=== PATIENT | female | born 1990 | race Caucasian/White ===

== ENCOUNTER 2017-01-09 17:05 | Emergency (ER) | payer OTHER ==
--- NOTE | 2017-01-09 17:42 | DIAGNOSTIC IMAGING REPORT ---
PROCEDURE: XR WRIST MIN 3 VIEWS - RIGHT INDICATION: TRAUMA/INJURY TECHNIQUE: Five views of the right wrist. COMPARISON: None. FINDINGS: Normal mineralization. No fractures. Normal osseous alignment. No suspicious soft-tissue calcification or radiodense foreign bodies. IMPRESSION: 1. Intact right wrist.
--- NOTE | 2017-01-09 17:57 | ED CLINICAL REPORT ---
Clinical Report - Physicians/Mid Levels [facility] [address] [place] [address] 01/09/2017 17:12 Patient: ASHLEY ESPINOZA Time Seen: 17:20; initial patient contact, initial documentation, patient care assumed. Arrived- By private vehicle. Historian- patient. HISTORY OF PRESENT ILLNESS Chief Complaint: Injury to the right wrist. The injury happened about 3 - 4 days ago. Occurred at work. The patient sustained a moderate direct blow (struck by wrench, changing oil). Patient is experiencing moderate pain. Patient denies injury to the head or neck. No other injury. REVIEW OF SYSTEMS The patient has had swelling. No tingling, numbness, weakness, foreign body or skin laceration. and bruising. All systems otherwise negative, except as recorded above. PAST HISTORY See nurses notes. PROBLEMS: Substance Abuse. Cellulitis. Abscess. Immunizations. LNMP - Last Normal Menstrual Period. Degenerative disk disease. Anemia. Endometriosis. Scoliosis. Arthritis. Lupus. --17:19 Bruce Myrick R.N. ADDITIONAL SURGERIES: Appendectomy. Dilatation & Curettage. Laparoscopy. Tonsillectomy. --17:19 Bruce Myrick R.N. 17:21. The patient's dominant hand is the right. SOCIAL HISTORY Light tobacco smoker. No alcohol use. No recent travel. Is a local resident. FAMILY HISTORY No significant family medical history. ADDITIONAL NOTES The nursing notes have been reviewed with agreement regarding the chief complaint, HPI, ROS, PMH and patient medications and allergies. PHYSICAL EXAM Vital Signs: 01/09/2017 17:15 BP: 131/81. HR: 102. RR: 18. O2 saturation: 98%. Temp: 98.6 F. Pain level now: 9/10. Have been reviewed as normal and appear to be correct. Appearance: Alert. Oriented X3. No acute distress. Head: Head atraumatic. Eyes: Pupils equal, round and reactive to light. Eyes normal inspection. Respiratory: No respiratory distress. Skin: Skin warm and dry. Skin intact. Extremities: (tender on the radial side, no swelling, from, no contusion, no s/s of injury). No wrist injury. No hand injury. Hand and wrist exam otherwise negative. Extremities otherwise negative. Neuro, Vascular and Tendons: Vascular status intact. Sensation intact. Motor intact. Tendon function intact. Neuro: Oriented X 3. No motor deficit. No sensory deficit. Note: isolated injury to wrist. LABS, X-RAYS, AND EKG X-Rays: Right wrist negative. Rt Wrist X-ray: (IMPRESSION: 1. Intact right wrist. Electronically Final signed by:Amna Kelly MD 01/09/2017 5:37:57 PM). The X-rays were interpreted by the radiologist and contemporaneously by me. PROGRESS AND PROCEDURES Course of Care: 17:25 01/09/17. pt has susana recommending no narcs or controlled substances be given, limit ionizing radiation studies, frequent narc rx, and #10 er visits, see report for full details 17:59 01/09/17. L&I paperwork completed, pt asking for time off from work, wrist splint, and keeps talking about how painful it is and it is shooting pains into her fingers. Patient counseled in person regarding the patient's stable condition, test results and diagnosis. 1750. Differential Diagnosis: Other possible considerations: wrist fx, contusion, sprain. Above considerations are based on history, physical exam, reassessment and X-Ray data. Differential diagnosis was discussed with patient. Disposition: Discharged home in good and improved condition (17:57). Condition: good and stable. CLINICAL IMPRESSION Sprain of the right radiocarpal joint. INSTRUCTIONS Wear elastic wrap (Waldo wrap) as directed for one weeks. Do not work today, tomorrow. Warnings: GENERAL WARNINGS: Return or contact your physician immediately if your condition worsens or changes unexpectedly, if not improving as expected, or if other problems arise. Specifically return if problem worsens. Prescription Medications: Naproxen 500 mg tablets: take 1 orally every 12 hours as needed for pain. Dispense twenty (20). No refills. Follow-up: Follow up with your doctor in about one week as needed. Call for an appointment. Summary of care provided to patient. Understanding of the discharge instructions verbalized by patient. (Electronically signed by Beata Altamirano A.R.N.P. 01/09/2017 20:47)
--- NOTE | 2017-01-09 17:57 | ED NURSING NOTES ---
Clinical Report - Nurses [facility] [address] [place] [address] 01/09/2017 17:12 Patient: ASHLEY ESPINOZA TRIAGE Triage time 17:15. Acuity: LEVEL 4. Chief Complaint: INJURY TO RIGHT WRIST. 17:15 01/09/17. 17:15 01/09/17. Alert. No acute distress. 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 This pain is not any better.). SEPSIS SCREEN: Sepsis Screen. Negative (no infection suspected/documented). HARMONY COMA SCORE: Harmony Coma Scale: 15- eyes open spontaneously (4); best verbal response- oriented x 4 (5); best motor response- obeys commands (6). --17:21 Bruce Myrick R.N. 17:15 01/09/17. BP: 131/81. HR: 102. RR: 18. O2 saturation: 98% on room air. Temp: 98.6 F (oral). Pain level now: 05/07. --17:21 Bruce Myrick R.N. Weight: 74.8 kg stated. Height/Length: 64 inches Per Patient. BMI: 28.3. --17:17 Bruce Myrick R.N. Medications LamoTRIgine Oral. --17:18 Bruce Myrick R.N. Vistaril Oral. --17:18 Bruce Myrick R.N. Imitrex Oral. --17:18 Bruce Myrick R.N. Allergies Cipro. Sulfa Antibiotics. Tetracycline. Toradol. Ultram. --17:18 Bruce Myrick R.N. Azithromycin. --17:19 Bruce Myrick R.N. The following entry was struck by Bruce Myrick R.N., 17:19 (01/09/17) Reason - other. <<STRICKEN ENTRY-- Erythromycin. --17:18 Boardley, Bruce, R.N. --END STRIKE>>. History Arrived by private vehicle. Historian: patient. Accompanied by family. Primary physician (Miguel Angel Culver). 17:15 01/09/17. This occurred (Monday). Occurred at work. Mechanism of injury: a single blow (right wrist). She has had numbness of the right hand w/ tingling. 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 PAST MEDICAL HX: Tetanus status: up-to-date. Immunizations: up-to-date. The patient has had a hysterectomy. SOCIAL HX: Current every day light tobacco smoker (cigarette)- less than 1/2 a pack per day. No alcohol use or drug use. No infectious disease exposure. ABUSE ASSESSMENT: No report of abuse. FALL RISK ASSESSMENT: Fall risk assessment completed. No fall risk identified. NUTRITIONAL RISK ASSESSMENT: The nutritional risk assessment revealed no deficiencies. FUNCTIONAL ASSESSMENT: Functional assessment: no impairments noted. LEARNING NEEDS ASSESSMENT: The learning needs assessment revealed no barriers. SKIN INTEGRITY ASSESSMENT: Skin integrity risk assessment completed. No skin integrity risk identified. --17:21 Bruce Myrick R.N. PROBLEMS: Substance Abuse. Cellulitis. Abscess. Immunizations. LNMP - Last Normal Menstrual Period. Degenerative disk disease. Anemia. Endometriosis. Scoliosis. Arthritis. Lupus. --17:19 Bruce Myrick R.N. ADDITIONAL SURGERIES: Appendectomy. Dilatation & Curettage. Laparoscopy. Tonsillectomy. --17:19 Bruce Myrick R.N. Hysterectomy. --17:21 Bruce Myrick R.N. Assessment 17:15 01/09/17. --17:21 Bruce Myrick R.N. Interventions 17:15 01/09/17. 17:01/09/17. ID and allergy band on patient. To treatment room. --17:21 Bruce Myrick R.N. PHYSICAL ASSESSMENT 17:20 01/09/17. Ambulatory to room. GENERAL / NEURO / PSYCH: Oriented X 4. Alert. Appears in no acute distress. EXTREMITIES: Capillary refill is less than 2 seconds in the extremities. Neuro-vascular status intact to the extremity. Right wrist: tenderness. SKIN: Skin is warm and dry. --17:20 Bruce Myrick R.N. NURSING PROGRESS NOTES 17:20 01/09/17. The plan of care for this patient has been created. Cold pack applied. Extremity elevated. Neuro-vascular extremity check. Reassurance given. Two patient identifiers checked. Call light placed in reach. Side rails up x 2. Bed placed in lowest position. Brakes of bed on. --17:20 Bruce Myrick R.N. 17:20 01/09/17. Patient ready for evaluation- chart flagged and notification provided. --17:20 Bruce Myrick R.N. DISPOSITION / DISCHARGE 18:03 01/09/17. Condition at departure: improved. The goals identified in the patient's plan of care were met. No learning barriers present. Discharge instructions provided and reviewed with the patient. Reviewed warnings. Reviewed medication(s). Treatments reviewed. Patient verbalized understanding. Written instructions provided in Nepalese. The patient was discharged by the nurse practitioner. She was discharged home and accompanied by family. She left the Emergency Department ambulatory and via private vehicle. Family member driving. FALL RISK ASSESSMENT: Fall risk assessment completed. No fall risk identified. --18:03 Bruce Myrick R.N. 18:02 01/09/17. BP: 124/79. HR: 86. RR: 12. O2 saturation: 99% on room air. Temp: 98.2 F (oral). Pain level now: 09/06. --18:03 Bruce Myrick R.N. 18:03 01/09/17. Departure time: 18:03. --18:03 Bruce Myrick R.N. Locked/Released at 01/09/2017 19:21 by Bruce Myrick R.N.
--- NOTE | 2017-01-09 17:57 | ED ORDER SUMMARY ---
..... Patient: ASHLEY ESPINOZA OrderSheet [facility] VisitID: [id number] [address] [place] [address] 26y, F Registration Date/Time: 01/09/2017 ORDER SHEET Weight: 74.8 kg (stated) Allergies: Cipro, Sulfa Antibiotics, Tetracycline, Toradol, Ultram, Azithromycin GENERAL ORDERS: Wrist 3 or 4V Right Urgent (17:24 01/09/2017 HBivens A.R.N.P.) (Ack 17:33 KHoerner) (17:40 KHoerner) Waldo Wrap (17:59 01/09/2017 HBivens A.R.N.P.) (Cancelled: Patient [id number] Christine VelascoNPatricia) MEDICATION ORDERS: IV FLUIDS: ORDER SHEET NOTES: [Electronically signed by Bruce Myrick R.N. (19:21 01/09/2017)] [Electronically signed by Beata Altamirano.R.N.PPatricia (20:47 01/09/2017)] [Electronically locked/signed by Bruce Myrick R.N. (19:21 01/09/2017)]
--- NOTE | 2017-01-09 17:57 | ED ORDER SUMMARY ---
..... Patient: ASHLEY ESPINOZA OrderSheet [facility] VisitID: [id number] [address] [place] [address] 26y, F Registration Date/Time: 01/09/2017 ORDER SHEET Weight: 74.8 kg (stated) Allergies: Cipro, Sulfa Antibiotics, Tetracycline, Toradol, Ultram, Azithromycin GENERAL ORDERS: Wrist 3 or 4V Right Urgent (17:24 01/09/2017 HBivens A.R.N.P.) (Ack 17:33 KHoerner) (17:40 KHoerner) Waldo Wrap (17:59 01/09/2017 HBivens A.R.N.P.) (Cancelled: Patient [id number] Christine VelascoNPatricia) MEDICATION ORDERS: IV FLUIDS: ORDER SHEET NOTES: [Electronically signed by Bruce Myrick R.N. (19:21 01/09/2017)] [Electronically signed by Beata Altamirano.R.N.PPatricia (20:47 01/09/2017)] [Electronically locked/signed by Bruce Myrick R.N. (19:21 01/09/2017)]
--- NOTE | 2017-01-09 20:47 | ED MAR SUMMARY ---
..... Medication Administration Record [facility] [address] [place], [place] [id number] Patient: ASHLEY ESPINOZA Visit ID: [id number] 26y, F Weight: 74.8 kg Height/Length: 64 in BMI: 28.3 ALLERGIES: Cipro, Sulfa Antibiotics, Tetracycline, Toradol, Ultram, Azithromycin
--- NOTE | 2017-01-09 20:47 | ED MED RECONCILIATION SUMMARY ---
Patient: ASHLEY ESPINOZA Medication Reconciliation Report [facility] VisitID: [id number] [address] [place] [address] 26y, F Registration Date/Time: 01/09/2017 Weight: 74.8 kg Height/Length: 64 in. BMI: 28.3 ALLERGIES: Azithromycin, Cipro, Sulfa Antibiotics, Tetracycline, Toradol, Ultram The patient's Home Medications are listed below: THE FOLLOWING MEDICATIONS NEED TO BE RECONCILED: Imitrex Oral LamoTRIgine Oral Vistaril Oral The source(s) of the original Home Medication information: Not obtained. The following Medications were given to the patient in the Emergency Department: None. The following Medications were prescribed to the patient: Naproxen 500 mg tablets: take 1 orally every 12 hours as needed for pain. Dispense twenty (20). No refills. -- Beata Altamirano A.R.N.P.
--- NOTE | 2017-01-09 20:47 | ED DISCHARGE INSTRUCTIONS ---
Patient: ASHLEY ESPINOZA General Instructions [facility] VisitID: [id number] [address] [place] [address] 26y, F Registration Date/Time: 01/09/2017 Sprain of the right radiocarpal joint. INSTRUCTIONS Wear elastic wrap (Waldo wrap) as directed for one weeks. Do not work today, tomorrow. Warnings: GENERAL WARNINGS: Return or contact your physician immediately if your condition worsens or changes unexpectedly, if not improving as expected, or if other problems arise. Specifically return if problem worsens. Prescription Medications: Naproxen 500 mg tablets: take 1 orally every 12 hours as needed for pain. Dispense twenty (20). No refills. Follow-up: Follow up with your doctor in about one week as needed. Call for an appointment. Summary of care provided to patient. Understanding of the discharge instructions verbalized by patient. ADDITIONAL INFORMATION Sprain, Wrist A sprain is an injury to the ligaments or capsule that holds a joint together. There are no broken bones. Most sprains take about three to six weeks to heal. If the ligament is completely torn (severe sprain), it can take months to recover. Most wrist sprains are treated with a splint, wrist brace or elastic wrap for support. Severe sprains may require surgery. Home care The following guidelines will help you care for your injury at home: 1) Keep your arm elevated to reduce pain and swelling. This is very important during the first 48 hours. 2) Apply an ice pack (ice cubes in a plastic bag, wrapped in a towel) over the injured area for 20 minutes every 12 hours the first day. Continue with ice packs 34 times a day for the next two days, then as needed for the relief of pain and swelling. 3) You may use acetaminophen or ibuprofen to control pain, unless another pain medicine was prescribed.If you have chronic liver or kidney disease or ever had a stomach ulcer or GI bleeding, talk with your doctor before using these medicines. 4) If you were given a splint or brace, wear it for the time advised by your doctor. Follow-up care Follow up with your doctor as advised. Any X-rays you had today dont show any broken bones, breaks, or fractures. Sometimes fractures dont show up on the first X-ray. Bruises and sprains can sometimes hurt as much as a fracture. These injuries can take time to heal completely. If your symptoms dont improve or they get worse, talk with your doctor. You may need a repeat X-ray. When to seek medical care Get prompt medical attention if any of the following occur: Pain or swelling increases Fingers or hand becomes cold, blue, numb, or tingly Waldo Wrap An "Waldo Bandage" refers to any elastic bandage wrap (2-6" wide). This is used to apply support and compression to an arm or leg. It will help prevent or reduce swelling also. When applying the bandage, it should not be stretched too tightly. A tight Waldo Wrap will reduce circulation and cause tingling or numbness in the hand or foot. It may increase the pain under the bandage. If you get these symptoms, remove the wrap and rest the limb. Symptoms should go away within 1-2 hours. Once symptoms go away, reapply the bandage with less stretch. If symptoms do not go away after 1-2 hours with the bandage off, call your doctor or return to this facility promptly. Naproxen Sodium Oral tablet What is this medicine? NAPROXEN (na PROX en) is a non-steroidal anti-inflammatory drug (NSAID). It is used to reduce swelling and to treat pain. This medicine may be used for dental pain, headache, or painful monthly periods. It is also used for painful joint and muscular problems such as arthritis, tendinitis, bursitis, and gout. How should I use this medicine? Take this medicine by mouth with a glass of water. Follow the directions on the prescription label. Take it with food if your stomach gets upset. Try to not lie down for at least 10 minutes after you take it. Take your medicine at regular intervals. Do not take your medicine more often than directed. Long-term, continuous use may increase the risk of heart attack or stroke. A special MedGuide will be given to you by the pharmacist with each prescription and refill. Be sure to read this information carefully each time. Talk to your z os mainframe systems programmer regarding the use of this medicine in children. Special care may be needed. What side effects may I notice from receiving this medicine? Side effects that you should report to your doctor or health care center manager as soon as possible: black or bloody stools, blood in the urine or vomit blurred vision chest pain difficulty breathing or wheezing nausea or vomiting severe stomach pain skin rash, skin redness, blistering or peeling skin, hives, or itching slurred speech or weakness on one side of the body swelling of eyelids, throat, lips unexplained weight gain or swelling unusually weak or tired yellowing of eyes or skin Side effects that usually do not require medical attention (report to your doctor or health care center manager if they continue or are bothersome): constipation headache heartburn What may interact with this medicine? alcohol aspirin cidofovir diuretics lithium methotrexate other drugs for inflammation like ketorolac or prednisone pemetrexed probenecid warfarin What if I miss a dose? If you miss a dose, take it as soon as you can. If it is almost time for your next dose, take only that dose. Do not take double or extra doses. Where should I keep my medicine? Keep out of the reach of children. Store at room temperature between 15 and 30 degrees C (59 and 86 degrees F). Keep container tightly closed. Throw away any unused medicine after the expiration date. What should I tell my health care provider before I take this medicine? They need to know if you have any of these conditions: asthma cigarette smoker drink more than 3 alcohol containing drinks a day heart disease or circulation problems such as heart failure or leg edema (fluid retention) high blood pressure kidney disease liver disease stomach bleeding or ulcers an unusual or allergic reaction to naproxen, aspirin, other NSAIDs, other medicines, foods, dyes, or preservatives or trying to get breast-feeding What should I watch for while using this medicine? Tell your doctor or health care center manager if your pain does not get better. Talk to your doctor before taking another medicine for pain. Do not treat yourself. This medicine does not prevent heart attack or stroke. In fact, this medicine may increase the chance of a heart attack or stroke. The chance may increase with longer use of this medicine and in people who have heart disease. If you take aspirin to prevent heart attack or stroke, talk with your doctor or health care center manager. Do not take other medicines that contain aspirin, ibuprofen, or naproxen with this medicine. Side effects such as stomach upset, nausea, or ulcers may be more likely to occur. Many medicines available without a prescription should not be taken with this medicine. This medicine can cause ulcers and bleeding in the stomach and intestines at any time during treatment. Do not smoke cigarettes or drink alcohol. These increase irritation to your stomach and can make it more susceptible to damage from this medicine. Ulcers and bleeding can happen without warning symptoms and can cause . You may get drowsy or dizzy. Do not drive, use machinery, or do anything that needs mental alertness until you know how this medicine affects you. Do not stand or sit up quickly, especially if you are an older patient. This reduces the risk of dizzy or fainting spells. This medicine can cause you to bleed more easily. Try to avoid damage to your teeth and gums when you brush or floss your teeth. You have been given the following additional information: Wrist Sprain Waldo Wrap Naproxen Sodium Oral tablet Do not work today, tomorrow. (Electronically signed by Beata Altamirano A.R.N.P. 01/09/2017 20:47)
--- NOTE | 2017-01-09 20:47 | ED DISCHARGE INSTRUCTIONS ---
Patient: ASHLEY ESPINOZA General Instructions [facility] VisitID: [id number] [address] [place] [address] 26y, F Registration Date/Time: 01/09/2017 Sprain of the right radiocarpal joint. INSTRUCTIONS Wear elastic wrap (Waldo wrap) as directed for one weeks. Do not work today, tomorrow. Warnings: GENERAL WARNINGS: Return or contact your physician immediately if your condition worsens or changes unexpectedly, if not improving as expected, or if other problems arise. Specifically return if problem worsens. Prescription Medications: Naproxen 500 mg tablets: take 1 orally every 12 hours as needed for pain. Dispense twenty (20). No refills. Follow-up: Follow up with your doctor in about one week as needed. Call for an appointment. Summary of care provided to patient. Understanding of the discharge instructions verbalized by patient. ADDITIONAL INFORMATION Sprain, Wrist A sprain is an injury to the ligaments or capsule that holds a joint together. There are no broken bones. Most sprains take about three to six weeks to heal. If the ligament is completely torn (severe sprain), it can take months to recover. Most wrist sprains are treated with a splint, wrist brace or elastic wrap for support. Severe sprains may require surgery. Home care The following guidelines will help you care for your injury at home: 1) Keep your arm elevated to reduce pain and swelling. This is very important during the first 48 hours. 2) Apply an ice pack (ice cubes in a plastic bag, wrapped in a towel) over the injured area for 20 minutes every 12 hours the first day. Continue with ice packs 34 times a day for the next two days, then as needed for the relief of pain and swelling. 3) You may use acetaminophen or ibuprofen to control pain, unless another pain medicine was prescribed.If you have chronic liver or kidney disease or ever had a stomach ulcer or GI bleeding, talk with your doctor before using these medicines. 4) If you were given a splint or brace, wear it for the time advised by your doctor. Follow-up care Follow up with your doctor as advised. Any X-rays you had today dont show any broken bones, breaks, or fractures. Sometimes fractures dont show up on the first X-ray. Bruises and sprains can sometimes hurt as much as a fracture. These injuries can take time to heal completely. If your symptoms dont improve or they get worse, talk with your doctor. You may need a repeat X-ray. When to seek medical care Get prompt medical attention if any of the following occur: Pain or swelling increases Fingers or hand becomes cold, blue, numb, or tingly Waldo Wrap An "Waldo Bandage" refers to any elastic bandage wrap (2-6" wide). This is used to apply support and compression to an arm or leg. It will help prevent or reduce swelling also. When applying the bandage, it should not be stretched too tightly. A tight Waldo Wrap will reduce circulation and cause tingling or numbness in the hand or foot. It may increase the pain under the bandage. If you get these symptoms, remove the wrap and rest the limb. Symptoms should go away within 1-2 hours. Once symptoms go away, reapply the bandage with less stretch. If symptoms do not go away after 1-2 hours with the bandage off, call your doctor or return to this facility promptly. Naproxen Sodium Oral tablet What is this medicine? NAPROXEN (na PROX en) is a non-steroidal anti-inflammatory drug (NSAID). It is used to reduce swelling and to treat pain. This medicine may be used for dental pain, headache, or painful monthly periods. It is also used for painful joint and muscular problems such as arthritis, tendinitis, bursitis, and gout. How should I use this medicine? Take this medicine by mouth with a glass of water. Follow the directions on the prescription label. Take it with food if your stomach gets upset. Try to not lie down for at least 10 minutes after you take it. Take your medicine at regular intervals. Do not take your medicine more often than directed. Long-term, continuous use may increase the risk of heart attack or stroke. A special MedGuide will be given to you by the pharmacist with each prescription and refill. Be sure to read this information carefully each time. Talk to your electroplating worker regarding the use of this medicine in children. Special care may be needed. What side effects may I notice from receiving this medicine? Side effects that you should report to your doctor or health home health care provider as soon as possible: black or bloody stools, blood in the urine or vomit blurred vision chest pain difficulty breathing or wheezing nausea or vomiting severe stomach pain skin rash, skin redness, blistering or peeling skin, hives, or itching slurred speech or weakness on one side of the body swelling of eyelids, throat, lips unexplained weight gain or swelling unusually weak or tired yellowing of eyes or skin Side effects that usually do not require medical attention (report to your doctor or health home health care provider if they continue or are bothersome): constipation headache heartburn What may interact with this medicine? alcohol aspirin cidofovir diuretics lithium methotrexate other drugs for inflammation like ketorolac or prednisone pemetrexed probenecid warfarin What if I miss a dose? If you miss a dose, take it as soon as you can. If it is almost time for your next dose, take only that dose. Do not take double or extra doses. Where should I keep my medicine? Keep out of the reach of children. Store at room temperature between 15 and 30 degrees C (59 and 86 degrees F). Keep container tightly closed. Throw away any unused medicine after the expiration date. What should I tell my health care provider before I take this medicine? They need to know if you have any of these conditions: asthma cigarette smoker drink more than 3 alcohol containing drinks a day heart disease or circulation problems such as heart failure or leg edema (fluid retention) high blood pressure kidney disease liver disease stomach bleeding or ulcers an unusual or allergic reaction to naproxen, aspirin, other NSAIDs, other medicines, foods, dyes, or preservatives or trying to get breast-feeding What should I watch for while using this medicine? Tell your doctor or health home health care provider if your pain does not get better. Talk to your doctor before taking another medicine for pain. Do not treat yourself. This medicine does not prevent heart attack or stroke. In fact, this medicine may increase the chance of a heart attack or stroke. The chance may increase with longer use of this medicine and in people who have heart disease. If you take aspirin to prevent heart attack or stroke, talk with your doctor or health home health care provider. Do not take other medicines that contain aspirin, ibuprofen, or naproxen with this medicine. Side effects such as stomach upset, nausea, or ulcers may be more likely to occur. Many medicines available without a prescription should not be taken with this medicine. This medicine can cause ulcers and bleeding in the stomach and intestines at any time during treatment. Do not smoke cigarettes or drink alcohol. These increase irritation to your stomach and can make it more susceptible to damage from this medicine. Ulcers and bleeding can happen without warning symptoms and can cause . You may get drowsy or dizzy. Do not drive, use machinery, or do anything that needs mental alertness until you know how this medicine affects you. Do not stand or sit up quickly, especially if you are an older patient. This reduces the risk of dizzy or fainting spells. This medicine can cause you to bleed more easily. Try to avoid damage to your teeth and gums when you brush or floss your teeth. You have been given the following additional information: Wrist Sprain Waldo Wrap Naproxen Sodium Oral tablet Do not work today, tomorrow. (Electronically signed by Beata Altamirano A.R.N.P. 01/09/2017 20:47)
--- NOTE | 2017-01-09 20:47 | ED MED RECONCILIATION SUMMARY ---
Patient: ASHLEY ESPINOZA Medication Reconciliation Report [facility] VisitID: [id number] [address] [place] [address] 26y, F Registration Date/Time: 01/09/2017 Weight: 74.8 kg Height/Length: 64 in. BMI: 28.3 ALLERGIES: Azithromycin, Cipro, Sulfa Antibiotics, Tetracycline, Toradol, Ultram The patient's Home Medications are listed below: THE FOLLOWING MEDICATIONS NEED TO BE RECONCILED: Imitrex Oral LamoTRIgine Oral Vistaril Oral The source(s) of the original Home Medication information: Not obtained. The following Medications were given to the patient in the Emergency Department: None. The following Medications were prescribed to the patient: Naproxen 500 mg tablets: take 1 orally every 12 hours as needed for pain. Dispense twenty (20). No refills. -- Beata Altamirano A.R.N.P.
--- NOTE | 2017-01-09 20:47 | ED MAR SUMMARY ---
..... Medication Administration Record [facility] [address] [place], [place] [id number] Patient: ASHLEY ESPINOZA Visit ID: [id number] 26y, F Weight: 74.8 kg Height/Length: 64 in BMI: 28.3 ALLERGIES: Cipro, Sulfa Antibiotics, Tetracycline, Toradol, Ultram, Azithromycin
== END 2017-01-09 18:03 | disposition home or self-care (01) ==
LOC: ED SRH 17:05
DX: S63.521A Sprain of radiocarpal joint of right wrist, initial encounter (principal); Z88.5 Allergy status to narcotic agent; W22.8XXA Striking against or struck by other objects, initial encounter; Y93.89 Activity, other specified; Y99.0 Civilian activity done for income or pay; Y92.9 Unspecified place or not applicable; Z72.0 Tobacco use; Z79.899 Other long term (current) drug therapy; Z88.1 Allergy status to other antibiotic agents; Z88.2 Allergy status to sulfonamides